=== PATIENT | male | born 1980 | race Caucasian/White ===

== ENCOUNTER 2021-06-19 19:52 | Emergency (ER) | payer MEDICARE ==
[~2021-06-19] VITALS: Ht 175.3 cm; Wt 109.1 kg
[~2021-06-19 19:52] MED LIST: METO25XL PO; OLAN10TA74 PO
[2021-06-19] MEDS ORDERED: VALS80TA2 PO (20:13)
[2021-06-19] MEDS ORDERED: OMEP20 PO (20:13)
[2021-06-19] MEDS ORDERED: SIMV-260 PO (20:13)
[2021-06-19] MEDS ORDERED: METF-1211 PO (20:13)
[2021-06-19] MEDS ORDERED: OLAN5TAB52 PO (20:13)
[2021-06-19] MEDS ORDERED: MULT-1203 PO (20:13)
[2021-06-19 20:26] LABS: GLUCOSE,POINT OF CARE 122 MG/DL (70-110)
[2021-06-19] MEDS ORDERED: SODIUM CHLORIDE 0.9% 1,000 ML IV ONE (22:45)
[2021-06-19] MEDS ORDERED: KETOROLAC TROMETHAMINE 30 MG/ML VIAL IVP ONE (22:45)
[2021-06-19 23:00] LABS: BASOPHILS % (AUTO) 0.3 % (0.0-2.0); EOSINOPHILS % (AUTO) 1.3 % (1.0-6.0); HEMOGLOBIN 15.9 g/dL (13.5-17.5); LYMPHOCYTES # (AUTO) 2.6 K/uL (1.0-4.8); LYMPHOCYTES % (AUTO) 28.8 % (22.0-44.0); MEAN CORPUSCULAR HEMOGLOBIN 31.2 pg (26.0-34.0); MEAN CORPUSCULAR HGB CONC 34.6 G/dL (31.0-37.0); MEAN CORPUSCULAR VOLUME 90 fL (80-100); MONOCYTES % (AUTO) 10.6 % (2.0-9.0); NEUTROPHILS # (AUTO) 5.3 K/uL (1.8-7.7); PLATELET COUNT (AUTO) 295 K/uL (150-450); RED CELL DISTRIBUTION WIDTH 13.3 % (11.5-14.5)
[2021-06-19 23:14] LABS: ANION GAP 7 mmol/L (8-16); CALCIUM, TOTAL 9.4 mg/dL (8.8-10.5); CARBON DIOXIDE 32 mmol/L (22-29); CHLORIDE 104 mmol/L (98-107); GLOMERULAR FILTR. RATE CALC > 60 mL/min (>60); GLUCOSE,RANDOM 112 mg/dL (70-110); SODIUM SERUM 143 mmol/L (136-145); UREA NITROGEN, BLOOD 16 mg/dL (7-18)
[2021-06-19] MEDS ORDERED: IOHEXOL 350 MG/ML 150 ML VIAL ONE (23:15)
[2021-06-19] MEDS ORDERED: SODIUM CHLORIDE 0.9% 100 ML ONE (23:15)
[2021-06-19 23:20] LABS: ALANINE AMINOTRANSFERASE 37 U/L (12-78); ALBUMIN 3.9 g/dL (3.4-5.0); ALKALINE PHOSPHATASE 99 U/L (46-116); ASPARTATE AMINOTRANSFERASE 20 U/L (15-37); BILIRUBIN,TOTAL 0.5 mg/dL (0.1-1.0); LIPASE 58 U/L (73-393); TOTAL PROTEIN, SERUM 8.1 g/dL (6.4-8.2)
[2021-06-20 02:47] VITALS: BP 137/88
== END 2021-06-20 04:09 | disposition home or self-care (01) ==
LOC: EMS 19:53
DX: S22.31XA Fracture of one rib, right side, initial encounter for closed fracture (principal); K80.20 Calculus of gallbladder without cholecystitis without obstruction; E11.9 Type 2 diabetes mellitus without complications; F32.9 Major depressive disorder, single episode, unspecified; E78.00 Pure hypercholesterolemia, unspecified; I10 Essential (primary) hypertension; F20.9 Schizophrenia, unspecified; K21.9 Gastro-esophageal reflux disease without esophagitis; Z79.84 Long term (current) use of oral hypoglycemic drugs; X58.XXXA Exposure to other specified factors, initial encounter; Y93.89 Activity, other specified; Y92.89 Other specified places as the place of occurrence of the external cause; Y99.8 Other external cause status
CPT/HCPCS: 71101; 74177; 76700; 80053; 82962; 83690; 85025; 96361; 96374; 99284; G0238; G0480; J1885; J7030; J7050; Q9967; 36415-L1; 36415-TC

== ENCOUNTER 2023-05-06 10:01 | Emergency (ER) | payer MEDICARE ==
[~2023-05-06] VITALS: Ht 175.3 cm; Wt 115.9 kg
[~2023-05-06 10:01] MED LIST changes: +METF-1211 PO; +MULT-1203 PO; +OLAN5TAB52 PO; +OMEP20 PO; +SIMV-260 PO; +VALS80TA2 PO
[2023-05-06 10:07] VITALS: BP 154/102; PULSE 104; RESP 20; TEMP 98.6
== END 2023-05-06 10:51 | disposition home or self-care (01) ==
LOC: EMS 10:39
DX: L53.9 Erythematous condition, unspecified (principal); F32.A Depression, unspecified; E11.9 Type 2 diabetes mellitus without complications; E78.00 Pure hypercholesterolemia, unspecified; I10 Essential (primary) hypertension; F20.9 Schizophrenia, unspecified; Z98.890 Other specified postprocedural states
CPT/HCPCS: 82962; 99282

== ENCOUNTER 2024-03-11 10:20 | Emergency (ER) | payer MEDICARE ==
[~2024-03-11] VITALS: Ht 177.8 cm; Wt 115.9 kg
[2024-03-11 10:30] VITALS: BP 143/101; PULSE 105; RESP 16; TEMP 98.1; O2SAT 98
[2024-03-11] MEDS ORDERED: METF-446 PO (10:37)
[2024-03-11] MEDS ORDERED: QUET50TA24 PO (10:37)
[2024-03-11] MEDS ORDERED: HYDR-4808 PO (10:37)
[2024-03-11] MEDS ORDERED: BUPR-345 PO (10:37)
[2024-03-11] MEDS ORDERED: CETI-450 PO (10:37)
[2024-03-11 10:50] LABS: GLUCOMETER DEV NAME(LOC) ERT.6; GLUCOSE,POINT OF CARE 181 MG/DL (70-110)
[2024-03-11 11:08] LABS: ANION GAP 8 mmol/L (8-16); BASOPHILS % (AUTO) 0.4 % (0.0-2.0); CALCIUM, TOTAL 8.7 mg/dL (8.8-10.5); CARBON DIOXIDE 30 mmol/L (22-29); CHLORIDE 100 mmol/L (98-107); CREATININE 0.97 mg/dL (0.60-1.30); EOSINOPHILS % (AUTO) 1.8 % (1.0-6.0); GLOMERULAR FILTR. RATE CALC > 60 mL/min (>60); GLUCOSE,RANDOM 145 mg/dL (70-110); HEMATOCRIT 48.5 % (41-53); HEMOGLOBIN 16.3 g/dL (13.5-17.5); LYMPHOCYTES # (AUTO) 2.3 K/uL (1.0-4.8); LYMPHOCYTES % (AUTO) 25.8 % (22.0-44.0); MEAN CORPUSCULAR HEMOGLOBIN 30.9 pg (26.0-34.0); MEAN CORPUSCULAR HGB CONC 33.6 G/dL (31.0-37.0); MEAN CORPUSCULAR VOLUME 92 fL (80-100); MONOCYTES # (AUTO) 0.8 K/uL (0.1-1.0); MONOCYTES % (AUTO) 9.1 % (2.0-9.0); NEUTROPHILS # (AUTO) 5.7 K/uL (1.8-7.7); NEUTROPHILS % (AUTO) 62.9 % (40.0-70.0); PLATELET COUNT (AUTO) 308 K/uL (150-450); POTASSIUM 4.2 mmol/L (3.5-5.1); RED BLOOD CELL COUNT(AUTO) 5.27 MIL/uL (4.50-5.90); RED CELL DISTRIBUTION WIDTH 13.6 % (11.5-14.5); SODIUM SERUM 138 mmol/L (136-145); UREA NITROGEN, BLOOD 16 mg/dL (7-18); WHITE BLOOD COUNT (AUTO) 9.1 K/uL (4.5-11.0)
[2024-03-11 11:19] LABS: ALCOHOL, BLOOD (SERUM) < 3 mg/dL (0-10)
== END 2024-03-11 12:40 | disposition home or self-care (01) ==
LOC: EMS 10:26
DX: F43.23 Adjustment disorder with mixed anxiety and depressed mood (principal); E11.9 Type 2 diabetes mellitus without complications; E78.00 Pure hypercholesterolemia, unspecified; I10 Essential (primary) hypertension; F20.9 Schizophrenia, unspecified; K21.9 Gastro-esophageal reflux disease without esophagitis; Z79.84 Long term (current) use of oral hypoglycemic drugs; Z79.899 Other long term (current) drug therapy
CPT/HCPCS: 99283; 80048; 82962; 85025; 36415; G0480

== ENCOUNTER 2024-04-08 16:18 | Emergency (ER) | payer MEDICARE ==
[~2024-04-08] VITALS: Ht 177.8 cm; Wt 104.1 kg
[~2024-04-08 16:18] MED LIST changes: +BUPR-345 PO; +CETI-450 PO; +HYDR-4808 PO; -METF-1211 PO; +METF-446 PO; -OLAN10TA74 PO; -OLAN5TAB52 PO; +QUET50TA24 PO
[2024-04-08 16:39] VITALS: BP 141/78; PULSE 97; RESP 18; TEMP 97.9; O2SAT 99
[2024-04-08] MEDS ORDERED: VALS80TA32 PO (16:44)
[2024-04-08] MEDS ORDERED: RISP1TAB48 PO (16:44)
[2024-04-08] MEDS ORDERED: OMEP20CA12 PO (16:44)
[2024-04-08] MEDS ORDERED: METO-408 PO (16:44)
[2024-04-08] MEDS ORDERED: SERT-439 PO (16:44)
[2024-04-08] MEDS ORDERED: SIMV5TAB59 PO (16:44)
[2024-04-08 17:09] LABS: COVID AG,FIA SOURCE NASAL SWAB
[2024-04-08 17:13] LABS: BASOPHILS % (AUTO) 0.4 % (0.0-2.0); EOSINOPHILS % (AUTO) 1.3 % (1.0-6.0); HEMATOCRIT 45.5 % (41-53); HEMOGLOBIN 15.2 g/dL (13.5-17.5); LYMPHOCYTES # (AUTO) 2.5 K/uL (1.0-4.8); LYMPHOCYTES % (AUTO) 24.3 % (22.0-44.0); MEAN CORPUSCULAR HEMOGLOBIN 30.7 pg (26.0-34.0); MEAN CORPUSCULAR HGB CONC 33.4 G/dL (31.0-37.0); MEAN CORPUSCULAR VOLUME 92 fL (80-100); MONOCYTES # (AUTO) 0.7 K/uL (0.1-1.0); MONOCYTES % (AUTO) 7.1 % (2.0-9.0); NEUTROPHILS # (AUTO) 6.9 K/uL (1.8-7.7); NEUTROPHILS % (AUTO) 66.9 % (40.0-70.0); PLATELET COUNT (AUTO) 265 K/uL (150-450); RED BLOOD CELL COUNT(AUTO) 4.94 MIL/uL (4.50-5.90); WHITE BLOOD COUNT (AUTO) 10.4 K/uL (4.5-11.0)
[2024-04-08 17:19] LABS: ANION GAP 7 mmol/L (8-16); CALCIUM, TOTAL 9.6 mg/dL (8.8-10.5); CARBON DIOXIDE 31 mmol/L (22-29); CHLORIDE 101 mmol/L (98-107); CREATININE 0.88 mg/dL (0.60-1.30); GLOMERULAR FILTR. RATE CALC > 60 mL/min (>60); GLUCOSE,RANDOM 108 mg/dL (70-110); POTASSIUM 4.1 mmol/L (3.5-5.1); SODIUM SERUM 139 mmol/L (136-145); UREA NITROGEN, BLOOD 14 mg/dL (7-18)
[2024-04-08 17:23] LABS: ALCOHOL, BLOOD (SERUM) < 3 mg/dL (0-10)
[2024-04-08 17:26] LABS: ALCOHOL, URINE DRUG SCREEN NEGATIVE (NEGATIVE); AMPHET/METH SCREEN,URINE NEGATIVE (NEGATIVE); BARBITURATE SCREEN, URINE NEGATIVE (NEGATIVE); BENZODIAZEPINES SCREEN,URINE NEGATIVE (NEGATIVE); CANNABINOID SCREEN,URINE NEGATIVE (NEGATIVE); COCAINE SCREEN,URINE NEGATIVE (NEGATIVE); METHADONE SCREEN, URINE NEGATIVE (NEGATIVE); OPIATE SCREEN,URINE NEGATIVE (NEGATIVE); PHENCYCLIDINE SCREEN,URINE NEGATIVE (NEGATIVE)
[2024-04-08 17:33] LABS: SARS-COV2 (COVID) ANTIGEN,FIA Negative (Negative)
== END 2024-04-08 18:22 | disposition left against medical advice (07) ==
LOC: EMS 16:18
DX: Z53.21 Procedure and treatment not carried out due to patient leaving prior to being seen by health care provider (principal); Z20.822 Contact with and (suspected) exposure to COVID-19
CPT/HCPCS: 80307; 87426; 36415; 80048; 85025; G0480

== ENCOUNTER 2024-05-14 16:13 | Emergency (ER) | payer MEDICARE ==
[~2024-05-14] VITALS: Ht 175.3 cm; Wt 100.0 kg
[~2024-05-14 16:13] MED LIST changes: +METO-408 PO; -METO25XL PO; -OMEP20 PO; +OMEP20CA12 PO; +RISP1TAB48 PO; +SERT-439 PO; -SIMV-260 PO; +SIMV5TAB59 PO; -VALS80TA2 PO; +VALS80TA32 PO
[2024-05-14 16:30] VITALS: BP 145/88; PULSE 120; RESP 16; TEMP 98.9; O2SAT 98
== END 2024-05-14 22:38 | disposition left against medical advice (07) ==
LOC: EMS 16:13
DX: R46.89 Other symptoms and signs involving appearance and behavior (principal); Z53.21 Procedure and treatment not carried out due to patient leaving prior to being seen by health care provider

== ENCOUNTER 2024-11-01 11:15 | Emergency (ER) | payer MEDICARE, OTHER ==
[~2024-11-01] VITALS: Ht 177.8 cm; Wt 120.9 kg
[2024-11-01 11:24] VITALS: TEMP 97.9
[2024-11-01] MEDS ORDERED: IBUP-1492 PO (12:41)
[2024-11-01] MEDS: IBUPROFEN 600 MG TABLET PO ONE (12:46)
[2024-11-01 12:58] VITALS: BP 122/85; PULSE 84; RESP 16; O2SAT 96
== END 2024-11-01 13:22 | disposition home or self-care (01) ==
LOC: EMS 11:22
DX: M77.9 Enthesopathy, unspecified (principal); F32.A Depression, unspecified; E11.9 Type 2 diabetes mellitus without complications; K21.9 Gastro-esophageal reflux disease without esophagitis; E78.00 Pure hypercholesterolemia, unspecified; I10 Essential (primary) hypertension; F20.9 Schizophrenia, unspecified; Z98.890 Other specified postprocedural states; Z79.899 Other long term (current) drug therapy
CPT/HCPCS: 99282; Z7502; Z7610